=== PATIENT | female | born 1980 | race Caucasian/White ===

== ENCOUNTER 2021-07-16 00:11 | Inpatient (IN) | payer MEDICAID, SELFPAY ==
[2021-07-16] VITALS (11 sets, daily range): BP systolic 109–125; BP diastolic 54–84
[~2021-07-16] VITALS: Ht 170.2 cm; Wt 86.2 kg
[~2021-07-16 00:11] MED LIST: AMOX-1000 PO; FERR325E14 PO; GLIP10TE PO; INSU100S22 SUBQ
--- NOTE | 2021-07-16 00:11 | NUR ---
PATIENT PRESENTS TO ED WITH HIGH BLOOD SUGAR. PT STATES "I DONT WANT TO BE HERE. I WANT TO GO TO [place]." DENIES N/V/D; SKIN IS NORMAL FOR ETHNICITY/WARM/DRY; AAOX4 WITH EVEN AND STEADY GAIT; LUNGS CBTA; HR EVEN AND REGULAR; PT DENIES ANY FEVER, CP, SOB, OR COUGH AT THIS TIME; PATIENT STATES PAIN OF 0/10 AT THIS TIME; VS WITHIN DEFINED LIMITS, BLOOD SUGAR 538; REFUSING PICC AND IVs AT THIS TIME. PATIENT POSITIONED FOR COMFORT; HOB ELEVATED; BEDRAILS UP X2; BED IN LOW POSITION. ER MD AWARE OF PT STATUS. SENT TO BATHROOM FOR URINE. GAIT STEADY EVEN THOUGH PT INDICATES SHE IS "PARTIALLY PARALYZED"
[2021-07-16] MEDS ORDERED: INSULIN REGULAR, HUMAN 100 UNIT/ML VIAL SUBQ ONE ×2 (00:15→01:45)
[2021-07-16 00:37] LABS: HEMATOCRIT 30.5 % (36-48); HEMOGLOBIN 9.6 g/dL (12.0-16.0); MEAN CORPUSCULAR HEMOGLOBIN 21 pg (27-31); MEAN CORPUSCULAR HGB CONC 32 g/dL (33-37); MEAN CORPUSCULAR VOLUME 67.2 fL (80-94); PLATELET COUNT (AUTO) 284 K/uL (140-450); RED BLOOD CELL COUNT(AUTO) 4.53 MIL/uL (4.20-5.40); WHITE BLOOD COUNT (AUTO) 6.6 K/uL (4.8-10.8)
[2021-07-16 00:57] LABS: ALBUMIN 3.1 g/dL (3.4-5.0); ANION GAP 17.1 (8-16); ASPARTATE AMINOTRANSFERASE 11 U/L (15-37); CARBON DIOXIDE 24.5 mmol/L (21-32); CHLORIDE 98 mmol/L (98-107); GFR ARICAN-AMERICAN 79 mL/min (>90); POTASSIUM 3.6 mmol/L (3.5-5.1); SODIUM SERUM 136 mmol/L (136-145); TOTAL BILIRUBIN 0.8 mg/dL (0.0-1.0); UREA NITROGEN, BLOOD 4 mg/dL (7-18)
[2021-07-16 01:00] LABS: EOSINOPHILS % (MANUAL) 2 % (0-4); LYMPHOCYTES % (MANUAL) 24 % (20-46); MONOCYTES % (MANUAL) 11 % (5-12)
[2021-07-16 01:09] LABS: GLUCOSE 582 mg/dL (74-106)
[2021-07-16 01:10] LABS: ACETONE, SERUM SMALL (NEGATIVE)
--- NOTE | 2021-07-16 01:14 | NUR ---
REC'D CALL FROM LAB RE BLOO [id number] AND SMALL ACETONE. SAMANTHA AWARE OF RESULTS. WILL CONTINUE TO TREAT BLOOD GLUCOSE WITH SQ INSULIN. Addendum: 07/16/21 at 0116 by [id number] REC'D CALL FROM LAB RE BLOOD [id number] AND SMALL ACETONE. SAMANTHA AWARE OF RESULTS. WILL CONTINUE TO TREAT BLOOD GLUCOSE WITH SQ INSULIN.
--- NOTE | 2021-07-16 02:00 | NUR ---
BLOOD GLUCOSE 451 ERMD AWARE INSULIN 10 UNITS ORDERED AND GIVEN THEODORE.
--- NOTE | 2021-07-16 02:13 | NUR ---
PT AMB WITH STEADY TO BATHROOM
--- NOTE | 2021-07-16 03:00 | NUR ---
BLOOD GLUCOSE 157 ERMD AWARE. ERMD UNSURE IF PT IS CAPABLE TO BE D/C D/T INABILITY TO PROVIDE ADAQUATE ANSWERS RE ADDRESS, PHONE, PAST MEDICAL HX. ANSWERS CONSISTENTLY CHANGE DURING TIME IN ER. PT APPEARS CONFUSED BUT NOT SIGNIFICANTLY SO. POSSIBLY REQUIRING CUSTOMS IMPORT SPECIALIST INTERVENTION IN THE MORNING. PT INDICATES SHE WANTS A "PLACE"
--- NOTE | 2021-07-16 04:53 | NUR ---
PT TO BE ADMITTED FOR GRAVELY DISABLED AND BLOOD GLUCOSE OUT OF CONTROL.
[2021-07-16] MEDS ORDERED: INSULIN LISPRO SLIDING SCALE 100 UNITS/ML VIAL SUBQ PRN (04:55)
--- NOTE | 2021-07-16 05:30 | NUR ---
OBTAINED SANTOS FOR ADMISSION. WALKED TO LAB AND SIGNED INTO BOOK. GIVEN TO BIG 6 DEALER.
[2021-07-16] MEDS: NACL 0.9% 1,000 ML IV SCH ×4 (06:00→23:46)
--- NOTE | 2021-07-16 06:26 | NUR ---
IV STARTED TO ADMIN IVF ORDERED BY ADMITTING MD #[id number] TO RIGHT HAND. 1 ATTEMPT IMMANUEL WELL SECURED WITH TEGADERM SITE CLEANED WITH ALCOHOL. IVF UP PER ORDERS.
[2021-07-16 06:38] LABS: APPEARANCE,URINE CLEAR (CLEAR); BILIRUBIN,URINE NEGATIVE (NEGATIVE); BLOOD, URINE NEGATIVE (NEGATIVE); COLOR,URINE YELLOW (YELLOW); LEUKOCYTE ESTERASE ,URINE NEGATIVE (NEGATIVE); NITRITE, URINE NEGATIVE (NEGATIVE); UGLUCOSE 3+ (NEGATIVE)
--- NOTE | 2021-07-16 06:58 | NUR ---
Patient appears to be resting comfortably in bed. VS WITHIN DEFINED LIMITS. Respirations even and unlabored. IV INFUSING SITE CLEAR DRY INTACT, NO WARMTH, REDNESS NOTED. DENIES PAIN. NAD NOTED. PENDING ADMIT BED.
[2021-07-16 06:59] LABS: RBC,URINE 0-5 /HPF (0-5); WBC,URINE 0-5 /HPF (0-5); YEAST,URINE Few /HPF (None Seen)
--- NOTE | 2021-07-16 07:10 | NUR ---
REPORT TO ONCOMING NURSE
--- NOTE | 2021-07-16 07:15 | NUR ---
REPORT RECIAVED RICHAR ROSAS FOR TRANSFER OF CARE.
--- NOTE | 2021-07-16 07:48 | NUR ---
BLOOD SUGAR AT 147. Addendum: 07/16/21 at 0751 by [email or web address] NO INSULIN COVERAGE NEEDED PER SLIDING SCALE.
--- NOTE | 2021-07-16 07:57 | NUR ---
Patient will be admitted to care of BRIAN. Admited to MED SURGE. Will go to [id number]. Belongings list completed. Report to GEGE ROSAS.
--- NOTE | 2021-07-16 08:04 | NUR ---
RECEIVED PHONE REPORT FROM ER NURSE FOR CONTINUITY OF CARE. WAITING PATIENT TO TRANSFER TO UNIT.
--- NOTE | 2021-07-16 10:10 | NUR ---
ENDORSED PT TO NACHO FOR CONTINUITY OF CARE. PATIENT IS STABLE.
--- NOTE | 2021-07-16 10:11 | NUR ---
RECEIVED REPORT FROM GEGE ROSAS
[2021-07-16] MEDS ORDERED: BLOOD GLUCOSE MONITORING 1 DEV DEV FS SCH (11:30)
--- NOTE | 2021-07-16 12:00 | NUR ---
UPDATE GIVEN TO FAMILY
[2021-07-16] MEDS: BLOOD GLUCOSE MONITORING 1 DEV DEV FS SCH ×7 (12:30→22:20)
[2021-07-16] MEDS ORDERED: MAG SULF 2000 MG/WATER PREMIX 50 ML IV PRN (12:30)
--- NOTE | 2021-07-16 12:30 | NUR ---
DR TORRES ORDERED TO TRANSFER TO ICU AND TO START DKA PROTOCOL/ INSULIN DRIP
[2021-07-16] MEDS ORDERED: ZOLPIDEM 5 MG TAB PO PRN (12:35)
[2021-07-16] MEDS ORDERED: ACETAMINOPHEN 325 MG TAB PO PRN (12:35)
[2021-07-16] MEDS ORDERED: ONDANSETRON 4 MG/2 ML VIAL IM/IVP PRN (12:35)
[2021-07-16] MEDS ORDERED: HYDROcodone/APAP 5/325 MG 1 TAB TAB PO PRN (12:35)
[2021-07-16] MEDS ORDERED: DOCUSATE SODIUM 100 MG GELCAP PO PRN (12:35)
[2021-07-16] MEDS ORDERED: LORazepam 2 MG/ML VIAL IM/IVP PRN (12:35)
[2021-07-16] MEDS ORDERED: MORPHINE SULFATE 2 MG/ML SYR IVP PRN (12:35)
[2021-07-16] MEDS ORDERED: FLUCONAZOLE 200 MG/NS PREMIX 100 ML IV SCH (13:00)
[2021-07-16] MEDS ORDERED: INSULIN REGULAR, HUMAN 100 UNIT in NACL 0.9% 100 ML IV SCH ×2 (13:00)
--- NOTE | 2021-07-16 13:30 | NUR ---
NOTIFIED DR TORRES ABOUT LATEST ANION GAP 13.3, ORDERED TO STOP INSULIN DRIP, CONTINUE IV NS 200CC/HR, AND MONITOR BLOOD SUGAR Q2H, KEEP ICU STATUS
[2021-07-16 13:33] LABS: ANION GAP 13.3 (8-16); CARBON DIOXIDE 27.8 mmol/L (21-32); CREATININE 0.7 mg/dL (0.6-1.3); POTASSIUM 3.1 mmol/L (3.5-5.1)
[2021-07-16 13:48] LABS: THYROID STIMULATING HORMONE 1.64 uIU/mL (0.34-3.74)
[2021-07-16 14:39] LABS: BARBITURATE, URINE NEGATIVE ng/ml (NEG <=200); BENZODIAZEPINE, URINE NEGATIVE ng/mL (NEG <=200); CANNABINOID, URINE NEGATIVE ng/mL (NEG <=50); COCAINE, URINE NEGATIVE ng/mL (NEG <=300); OPIATE, URINE NEGATIVE ng/mL (NEG <=2000); PHENCYCLIDINE SCREEN,URINE NEGATIVE ng/mL (NEG <=25)
--- NOTE | 2021-07-16 16:00 | NUR ---
K 3.1, PT REFUSED K-DUR 40MEQ, OFFERED TO CHANGED ROUTE TO IV K RIDER BUT STILL REFUSED. PT SAID THAT SHE WILL TAKE K-DUR WHEN SHE IS ABLE TO EAT
--- NOTE | 2021-07-16 17:36 | NUR ---
PT REFUSING BLOOD DRAW AT THIS TIME, EXPLAINED TO PT NEED FOR LABS, PT SAID TO COME BACK AT 1800
[2021-07-16] MEDS: POTASSIUM CHLORIDE 10 MEQ TABER PO PRN (17:45)
--- NOTE | 2021-07-16 19:30 | NUR ---
RECEIVED REPORT FROM RALPH GRIFFITH DAYSHIFT NURSE AT BEDSIDE PT SITTING UP IN BED HOB AT 90% SHE IS AOX4 ON ROOM AIR SHE HAS A 22G ON RIGHT HAND INTACT AND RUNNING NORMAL SALINE AT 200MLS/HR. PT V/S FOLLOWS: T 98.2 P 86 R 21 B/P 116/68 02 100% ON ROOM AIR. PT RESTING WITH EYES CLOSED AND SHE HAS NO C/O VOICED AT THIS TIME. ALL UNIVERSAL FALLS PRECAUTIONS IN PLACE.
--- NOTE | 2021-07-16 20:05 | NUR ---
PT FINGERSTICK IS 227, NO S/S ORDERED AT THIS TIME. LAB AT BEDSIDE ATTEMPTING TO DRAW BLOOD. CONSTRUCTION EQUIPMENT OVERHAULER HAD 2 UNSUCCESSFUL POKES, PT REQUESTED ANOTHER HEALTH PLAN ADVISOR TO ATTEMPT BLOOD DRAW. PT SAID SHE WOULD TAKE ORDERED HEPARIN SHOT WITH MUCH ENCOURAGEMENT AND EDUCATION REGARDING PROPOSE OF MEDICATION. ALL FALLS PRECAUTIONS IN PLACE.
--- NOTE | 2021-07-16 20:30 | NUR ---
PT REQUESTED BED SERRA AND WAS ASSISTED REQUESTED. V/S FOLLOWS: P 90 R 20 B/P 125/73 02 100% ON ROOM AIR. AWAITING ANOTHER ELECTRICIAN MANAGER FROM LAB TO ATTEMPT BLOOD DRAW. PT WAS ASKED AGAIN IF SHE WOULD BE WILLING TO TAKE THE ORDERED K-DUR OR K-RIDER VIA IV. PT SAID SHE WOULD TAKE THE K-DUR WHEN SHE CAN EAT AND SHE WAS CONCERNED THAT THE K-RIDER MAY BURN WITH ADMINISTRATION AND THAT SHE DID NOT WANT TO RECEIVE THE K-RIDER SHE WILL SAID THAT SHE WILL WAIT FOR TOMORROW WHEN SHE IS ORDERED A DIET AND WILL TAKE THE K-DUR WITH FOOD.
--- NOTE | 2021-07-16 21:03 | NUR ---
LAB AT BEDSIDE ATTEMPTING TO GET BLOOD DRAW. ENCOURAGE PT NOT TO LOOK AT BLOOD DRAW, WHICH MAY HELP THE TECHNICIANS TO COLLECT HER BLOOD. PT REFUSED AND WAS RUDE TO STAFF SAYING SAID THAT SHE NEEDS TO LOOK THAT SHE NEEDS TO LOOK AT NEEDLE AND DONT ASK ME AGAIN. STAFF REPLIED THAT THEY ARE ONLY TRYING TO HELP MAKE IT EASIER TO PERHAPS COLLECT THE BLOOD , BUT IT IS UP TO HER IF SHE PREFERS TO BE POKED SEVERAL TIMES INSTEAD OF LISTENING TO ADVISE OF STAFF.
--- NOTE | 2021-07-16 22:15 | NUR ---
PT SITTING UP IN BED RESTING WITH EYES CLOSED FINGERSTICK IS 248 V/S FOLLOWS: P 86 R 14 B/P 121/69 02 100%. LAB UNABLE TO OBTAIN BLOOD DRAW. NO C/O VOICED AT THIS TIME.
[2021-07-16 23:43] LABS: ANION GAP 16.5 (8-16); CARBON DIOXIDE 22.9 mmol/L (21-32); CREATININE 0.6 mg/dL (0.6-1.3); POTASSIUM 3.4 mmol/L (3.5-5.1)
[2021-07-16 23:46] LABS: MAGNESIUM 1.8 mg/dL (1.8-2.4)
[2021-07-17] VITALS (14 sets, daily range): BP systolic 94–148; BP diastolic 58–92
--- NOTE | 2021-07-17 00:30 | NUR ---
PT FINGERSTICK IS 241 NO COVERAGE ORDERED. LAB CALLED, MRSA SWAB NEEDED. PT PLACED ON BED SERRA REQUESTED. V/S FOLLOWS: T 97.9 P 91 R 18 B/P 132/77 02 99% ON ROOM AIR. ALL UNIVERSAL FALLS PRECAUTIONS IN PLACE. NORMAL SALINE CONTINUES AT 200MLS AN HOUR IV SITE IS ASYMPTOMATIC. PT DENIES ANY PAIN.
[2021-07-17] MEDS: BLOOD GLUCOSE MONITORING 1 DEV DEV FS SCH ×7 (00:57→21:44)
--- NOTE | 2021-07-17 02:30 | NUR ---
PT GIVEN REQUESTED BED SERRA, HE FINGERSTICK IS 274. PT DECLINED LAB DRAWS OF BMP, MAG PHOSPHOROUS DUE AT THIS TIME. LAB WILL ENDORSE TO NEXT SHIFT TO DRAW PT AT BEDSIDE.
--- NOTE | 2021-07-17 04:30 | NUR ---
PT GIVEN REQUESTED BED SERRA, FINGERSTICK IS 280. NS RUNNING AT 200MLS/HR.
--- NOTE | 2021-07-17 05:32 | NUR ---
PT HAD URINATED THE BED, SHE WAS GIVEN A BED BATH, LINENS AND GOWN WAS CHANGED. SHE REMAINS ON ROOM AIR IV SITE INTACT AND FLUSHED PATENT. NEW BAG OF NORMAL SALINE HUNG AND CONTINUES RUNNING AT 200MLS/HR. V/S FOLLOWS: P 81 R 18 B/P 128/71 02 100% ON ROOM AIR. ALL ORDERED PRECAUTIONS IN PLACE.
--- NOTE | 2021-07-17 06:20 | NUR ---
PT FINGERSTICK IS 275, V/S FOLLOWS: P 75 R 15 B/P 135/75 02 98% ON ROOM AIR. NORMAL SALINE RUNNING ORDERED. ALL REQUESTS ATTENDED BY STAFF AND ALL UNIVERSAL PRECAUTIONS IN PLACE.
--- NOTE | 2021-07-17 07:05 | NUR ---
RECEIVED REPORT FROM RALPH KUNZ, PT IS SLEEPING, ON ROOM AIR, BEDREST AND NPO EXCEPT MEDICATIONS. LATEST BLOOD SUGAR AT 275 MG/D, SKIN INTACT, IV INTACT ON RIGHT HAND G22 RUNNING NS AT 200 MLS/HR, PT REFUSED K RIDER AND LAB DRAWS, PT FOR HEAD CT WITH OUT CONTRAST AND FOR SNF PLACEMENT FOR POSSIBLE PT NEEDS. SAFETY MEASURES IN PLACE AND CALL LIGHT WITHIN REACH. WILL CONTINUE TO MONITOR.
[2021-07-17] MEDS ORDERED: DEXTROSE 50% 50 ML SYR IVP PRN (08:25)
--- NOTE | 2021-07-17 08:30 | NUR ---
PT OUT IN HER ROOM HEAD CT WITHOUT CONTRAST DONE PT TOLERATED WELL AND PT STABLE.
[2021-07-17] MEDS: FERROUS SULFATE 325 MG TABEC PO SCH (08:43)
--- NOTE | 2021-07-17 09:00 | NUR ---
PT REFUSED PO MEDICATIONS AND HEPARIN SODIUM SUBQ. AND PT REFUSED LAB DRAWS.
--- NOTE | 2021-07-17 09:14 | NUR ---
PATIENT HAS BEEN SCREENED AND CATEGORIZED HIGH NUTRITION RISK. PATIENT WILL BE SEEN WITHIN 1-2 DAYS OF ADMISSION. 07/16/21-07/17/21 REVIEWED BY AD KIM RD
[2021-07-17] MEDS: INSULIN LISPRO SLIDING SCALE 100 UNITS/ML VIAL SUBQ PRN ×3 (11:55→21:48)
[2021-07-17 14:26] LABS: BASOPHILS # (AUTO) 0.1 K/uL (0.00-0.22); BASOPHILS % (AUTO) 1.1 % (0.0-2.0); EOSINOPHILS # (AUTO) 0.1 K/uL (0-0.4); EOSINOPHILS % (AUTO) 2.1 % (0.0-4.0); HEMATOCRIT 31.4 % (36-48); HEMOGLOBIN 10.1 g/dL (12.0-16.0); LYMPHOCYTES # (AUTO) 1.4 K/uL (2.5-16.5); LYMPHOCYTES % (AUTO) 27.4 % (20.5-51.1); MEAN CORPUSCULAR HEMOGLOBIN 21 pg (27-31); MEAN CORPUSCULAR HGB CONC 32 g/dL (33-37); MEAN CORPUSCULAR VOLUME 66.2 fL (80-94); MONOCYTES # (AUTO) 0.4 K/uL (0.8-1.0); MONOCYTES % (AUTO) 7.2 % (1.7-9.3); NEUTROPHILS # (AUTO) 3.1 K/uL (1.8-7.7); NEUTROPHILS % (AUTO) 62.2 % (42.2-75.2); PLATELET COUNT (AUTO) 257 K/uL (140-450); RED BLOOD CELL COUNT(AUTO) 4.75 MIL/uL (4.20-5.40); RED CELL DISTRIBUTION WIDTH 24.7 % (11.6-13.7)
[2021-07-17 14:36] LABS: ANION GAP 12.4 (8-16); CARBON DIOXIDE 27.6 mmol/L (21-32); CREATININE 0.6 mg/dL (0.6-1.3)
[2021-07-17 14:39] LABS: MAGNESIUM 1.7 mg/dL (1.8-2.4); PHOSPHORUS 2.1 mg/dL (2.5-4.9)
--- NOTE | 2021-07-17 15:34 | NUR ---
07/17/21 RD INITIAL ASSESSMENT COMPLETED PLEASE REFER TO NUTRITION ASSESSMENT UNDER CARE ACTIVITY FOR ESTIMATED NUTRITIONAL NEEDS. 1. CONTINUE [facility] 60 GMS DIET ONCE LAB VALUES ARE OBTAINED AND STABLE 2. MONITOR BLOOD GLUCOSE LEVELS 3. RD TO FOLLOW-UP 2-3 DAYS, HIGH RISK ANY PETTY RD
--- NOTE | 2021-07-17 16:30 | NUR ---
GAVE REPORT TO ESTHER FOR CONTINUITY OF CARE.PT IS STABLE AND NI DISTRESS NOTED.
--- NOTE | 2021-07-17 16:31 | NUR ---
RECEIVED REPORT FROM DAY NURSE FOR CONTINUITY OF CARE. PATIENT IS AWAKE, NO DISTRESS NOTED. BREATHING IS EVEN AND UNLABORED. DENIES PAIN. NO IV LINE IN PLACE. ON TELE. RESTING IN BED. CALL LIGHT WITHIN REACH. PT IS STABLE.
--- NOTE | 2021-07-17 19:30 | NUR ---
REPORT GIVEN TO THE NIGHT NURSE FOR CONTINUITY OF CARE.
[2021-07-18] VITALS: BP 134/63
[2021-07-18 04:00] VITALS: BP 122/67
[2021-07-18] MEDS: BLOOD GLUCOSE MONITORING 1 DEV DEV FS SCH ×4 (07:01→21:00)
[2021-07-18] MEDS: INSULIN LISPRO SLIDING SCALE 100 UNITS/ML VIAL SUBQ PRN ×4 (07:03→21:30)
--- NOTE | 2021-07-18 07:31 | NUR ---
ENDORSED TO DAY NURSE, RALPH HERNANDEZ FOR CONTINUITY OF CARE. ANNETTE AYALA RN
[2021-07-18 08:00] VITALS: BP 116/68
--- NOTE | 2021-07-18 08:02 | NUR ---
RECEIVED REPORT FROM CARTON AND CAN SUPPLY SUPERVISOR NURSE FOR CONTINUITY OF CARE. PATIENT IS AWAKE, NO DISTRESS NOTED. BREATHING IS EVEN AND UNLABORED. DENIES PAIN. PATIENT HAS NO IV LINE, REFUSED TO INSERT NEW ONE . ON TELE. RESTING IN BED. CALL LIGHT WITHIN REACH. ALL SAFETY MEASURES ON PLACE
[2021-07-18] MEDS: FERROUS SULFATE 325 MG TABEC PO SCH (08:37)
[2021-07-18 09:04] LABS: BASOPHILS # (AUTO) 0.1 K/uL (0.00-0.22); BASOPHILS % (AUTO) 1.3 % (0.0-2.0); EOSINOPHILS # (AUTO) 0.1 K/uL (0-0.4); EOSINOPHILS % (AUTO) 2.5 % (0.0-4.0); HEMATOCRIT 27.5 % (36-48); HEMOGLOBIN 8.8 g/dL (12.0-16.0); LYMPHOCYTES # (AUTO) 1.4 K/uL (2.5-16.5); LYMPHOCYTES % (AUTO) 26.5 % (20.5-51.1); MEAN CORPUSCULAR HEMOGLOBIN 21 pg (27-31); MEAN CORPUSCULAR HGB CONC 32 g/dL (33-37); MEAN CORPUSCULAR VOLUME 66.5 fL (80-94); MONOCYTES # (AUTO) 0.5 K/uL (0.8-1.0); MONOCYTES % (AUTO) 10.2 % (1.7-9.3); NEUTROPHILS % (AUTO) 59.5 % (42.2-75.2); PLATELET COUNT (AUTO) 234 K/uL (140-450); RED BLOOD CELL COUNT(AUTO) 4.14 MIL/uL (4.20-5.40); RED CELL DISTRIBUTION WIDTH 24.3 % (11.6-13.7); WHITE BLOOD COUNT (AUTO) 5.1 K/uL (4.8-10.8)
[2021-07-18 09:06] LABS: T4 (THYROXINE) 7.3 ug/dL (4.5-12.0)
[2021-07-18 09:14] LABS: ANION GAP 11.2 (8-16); CARBON DIOXIDE 27.9 mmol/L (21-32); CREATININE 0.8 mg/dL (0.6-1.3); POTASSIUM 3.1 mmol/L (3.5-5.1)
[2021-07-18 09:33] LABS: MAGNESIUM 1.8 mg/dL (1.8-2.4); PHOSPHORUS 2.3 mg/dL (2.5-4.9)
--- NOTE | 2021-07-18 10:00 | NUR ---
PATIENT IN BED NO COMPLAINS, NO SOD NOTED, PATIENT GOT MORNING MEDICATION AND EDUCATION REGARD MEDS POC DISCUSSED CALLS LIGHT WITHIN REACH ALL SAFETY MEASURES ON PLACE
--- NOTE | 2021-07-18 11:42 | NUR ---
PATIENT IN BED NO COMPLAINS, NO SOD NOTED CALLS LIGHT WITHIN REACH ALL SAFETY MEASURES ON PLACE
[2021-07-18] MEDS: POTASSIUM CHLORIDE 10 MEQ TABER PO PRN (11:57)
[2021-07-18 12:28] VITALS: BP 116/67
--- NOTE | 2021-07-18 13:50 | NUR ---
PATIENT IN BED NO COMPLAINS, NO SOD NOTED, ALL SAFETY MEASURES ON PLACE, CALLS LIGHT WITHIN REACH
[2021-07-18 15:07] LABS: FOLIC ACID 10.4 ng/mL (>3.0)
--- NOTE | 2021-07-18 16:02 | NUR ---
PATIENT IN BED NO COMPLAINS, NO SOD NOTED, PSYCHIATRIC TRIED TO TALK TO THE PATIENT . PATIENT REFUSED TO TALKED TO THE PSYCHIATRIC DR ALL SAFETY MEASURES ON PLACE, CALLS LIGHT WITHIN REACH
[2021-07-18 16:20] VITALS: BP 122/70
--- NOTE | 2021-07-18 16:32 | NUR ---
DC PLANNING: JUAREZ SPOKE WITH THE PATIENT REGARDING THE NEED FOR PSYCH EVALUATION PT STATED SHE DIDN'T KNOW THAT SHE NEEDED EVALUATION FOR PLACEMENT HOWEVER AGREE AND WILL COOPERATE. SW TO CONTACT ANGELO CHAVEZ INFUSION THERAPY NURSE. ONCE SHE HAS PSYCH EVAL AND NURSE'S NOTES TO BE FAXED TO [facility] IN [place] PHONE # [phone] FAX NUMBER [phone]. CM TO FOLLOW Addendum: 07/19/21 at 0914 by Janay Cancino CM DC PLANNING: ORDERS RECEIVED FOR IP PSYCHIATRIC PLACEMENT. JUAREZ SPOKE WITH [facility], THEY HAVE NOT YET RECEIVED INFORMATION ON THE PATIENT FOR PLACEMENT, CM WILL FOLLOW UP.
--- NOTE | 2021-07-18 16:49 | NUR ---
PATIENT IN BED NO COMPLAINS, NO SOD NOTED, SOUP MIXER TALKED TO THE PATIENT REGARD THE PSYICH TISH, PATIENT AGREE. PSYCHIATRICS EVAL WILL BE DONE AGAIN TODAY AT 7ALL SAFETY MEASURES ON PLACE, CALLS LIGHT WITHIN REACH
--- NOTE | 2021-07-18 18:15 | NUR ---
PATIENT IN BED NO COMPLAINS, NO SOD NOTED, ALL SAFETY MEASURES ON PLACE, CALLS LIGHT WITHIN REACH
--- NOTE | 2021-07-18 19:56 | NUR ---
full bedside report given to weight shifter nurse
[2021-07-18 20:00] VITALS: BP 117/57
--- NOTE | 2021-07-18 21:13 | NUR ---
PSYCH CONSULT DONE.PER PSYCHIATRIST PT NEEDS TO TRANSFER TO PSYCH FACILITY.
[2021-07-19] VITALS: BP 109/59
--- NOTE | 2021-07-19 00:58 | NUR ---
PATIENT ALERT RESTING IN BED NO C/O OF PAIN ON MONITOR SINUS PATIENT LUNGS DIMINISH TO LISTEN .PATIENT REFUSE HER HEPARIN S.Q BLOOD SUGAR HS WAS 382 COVERED WITH 10 UNITS OF HUMALOG S.Q PATIENT REFUSE TO HAVE A IV STARTED. SKIN INTACT MIKE FOR HER TO GO TO [facility].
[2021-07-19 04:00] VITALS: BP 110/62
--- NOTE | 2021-07-19 07:15 | NUR ---
RECEIVED BEDSIDE REPORT FROM KERFER MACHINE OPERATOR NURSE FOR CONTINUITY OF CARE. PT IS ASLEEP. CHEST RISE AND FALL IS SYMMETRICAL. ON RA WITH BREATHING UNLABORED. SR ON TELE MONITOR. AMBULATORY INDEPENDENTLY. SKIN IS WARM, DRY, AND INTACT. IV IS INTACT. PT REFUSED BS READING PER KERFER MACHINE OPERATOR NURSE, WILL TRY AGAIN SHORTLY. PT IS STABLE. PLAN OF CARE DISCUSSED.
[2021-07-19 08:00] VITALS: BP 122/69
--- NOTE | 2021-07-19 08:00 | NUR ---
NO IV ACCESS. ATTEMPTED TO INSERT IV AND PT REFUSED. NO IV LINE IN PLACE, WILL TRY AGAIN LATER.
--- NOTE | 2021-07-19 08:24 | NUR ---
PT REFUSED AM LAB DRAW. TECH WILL COME BACK AFTER BREAKFAST.
[2021-07-19] MEDS: FERROUS SULFATE 325 MG TABEC PO SCH (09:00)
[2021-07-19] MEDS: ARIPiprazole 10 MG TAB PO SCH (09:00)
--- NOTE | 2021-07-19 09:00 | NUR ---
PT REFUSED TO TAKE ABILIFY, HEPARIN, AND FERROUS SULFATE. MEDICATION EDUCATION WAS PROVIDED AND PT STILL REFUSED. PT STATED SHE DOESN'T WANT PSYCHIATRIC MEDICINE, SHES NOT ANEMIC, AND SHE DOES NOT WANT TO TAKE A BLOOD THINNER. WILL INFORM MD ON CASE.
[2021-07-19] MEDS: FLUCONAZOLE 100 MG TAB PO SCH (09:20)
[2021-07-19] MEDS: BLOOD GLUCOSE MONITORING 1 DEV DEV FS SCH ×4 (09:22→20:50)
[2021-07-19] MEDS: INSULIN LISPRO SLIDING SCALE 100 UNITS/ML VIAL SUBQ PRN ×4 (09:28→20:53)
--- NOTE | 2021-07-19 09:28 | NUR ---
BS READING IS 366. HUMALOG INSULIN 10 UNITS WAS ADMINISTERED ORDERED PER SLIDING SCALE. MEDICATION EDUCATION WAS PROVIDED AND PT VERBALIZED UNDERSTANDING.
--- NOTE | 2021-07-19 11:00 | NUR ---
PT WAS GIVEN WATER REQUESTED. PT IS AWAKE AND ALERT, ABLE TO MAKE NEEDS KNOWN. PT IS AGGRESSIVE AND SHOWS AGITATION TOWARDS STAFF. NO DISTRESS NOTED. PT IS STABLE.
--- NOTE | 2021-07-19 12:07 | NUR ---
PT'S BS READING WAS 310. PT WAS GIVEN HUMALOG INSULIN, 8 UNITS, PER SLIDING SCALE. PT VERBALIZED UNDERSTANDING ON MEDICATION EDUCATION.
--- NOTE | 2021-07-19 12:43 | NUR ---
CALLED [facility] , THEY WILL SEND SOMEONE FOR 5150 HOLD.
--- NOTE | 2021-07-19 13:17 | NUR ---
OFFICEIza DANG AT BEDSIDE AND EVALUATED PT. STATED BY OFFICER "PT DID NOT MEET CRITER[facility] FOR 5150 HOLD." NOTIFIED TARYN, JOURNEYMAN PIPE FITTER, AND SHE STATED SHE WOULD LET [facility]ICK[facility] KNOW WHO IS ON THE CASE. WILL WAIT FOR RESPONSE FROM VICKY ON THE PLAN OF CARE.
--- NOTE | 2021-07-19 13:55 | NUR ---
07/19/21 RD FOLLOW UP COMPLETED PLEASE REFER TO NUTRITION ASSESSMENT UNDER CARE ACTIVITY FOR ESTIMATED NUTRITIONAL NEEDS. 1. CONTINUE [facility] 60 GM DIET TOLERATED 2. MONITOR BLOOD GLUCOSE LEVELS 3. RD TO FOLLOW-UP 2-3 DAYS, HIGH RISK ANY PETTY RD
--- NOTE | 2021-07-19 14:15 | NUR ---
DC PLANNING: DARRIN SPOKE WITH MIGUEL AT PSYCH GROUP COORDINATOR OF SERVICES TO INFORM HER ABOUT [facility] P.DKandi DID NOT PLACE PATIENT ON A 5150 HOLD DUE TO NOT MEETING CRITERIA FOR GRAVELY DISABILITY TO BE TRANSFER TO A PSYCH FACILITY. PER MIGUEL SHE WILL INFORM DR. PERERA TO DETERMINE IF SHE NEEDS TO DO ANOTHER EVALUATION OR DOCUMENT A PSYCH CLEARANCE FOR PATIENT. PER MIGUEL SHE WILL FOLLOW UP WITH A CALL TO THESE TAG MAKER LATER TODAY.
--- NOTE | 2021-07-19 14:56 | NUR ---
DC PLANNING: SW SPOKE TO [facility] AT AND DISCUSS PATIENT'S SITUATION WITH PLACEMENT AND SHE REQUESTED TO HAVE RECENT NURSE'S NOTES AND EVALUATIONS ON PATIENT BE FAXED TO [facility] AT . SW AGREED AND WILL FOLLOW UP NEEDED.
--- NOTE | 2021-07-19 15:35 | NUR ---
RECEIVED CALL FROM VICKY, AIRCRAFT MECHANIC. SHE STATED THAT DR. Fregoso NEEDS A FOLLOW UP WITH THE PT IN THE NEXT TEN MINUTES. WILL CONNECT IPAD AND WAIT FOR CALL.
--- NOTE | 2021-07-19 15:56 | NUR ---
SPOKE TO PSYCH DOCTOR, DR. Gaffney ON THE TELE PSYCH IPAD VIA VIDEO CALL. ALL QUESTIONS ANSWERED ABOUT PT. PT SPOKE WITH PSYCH DOCTOR. PT ANSWERED ALL QUESTIONS. NO SUICIDAL IDEATION NOTED. DOCTOR STATED THAT SHE WOULD BE CLEARED FROM A HOLD AND CASE MANAGEMENT CAN ARRANGE FOR PLACEMENT TO A FACILITY.
[2021-07-19 16:00] VITALS: BP 109/56
--- NOTE | 2021-07-19 16:48 | NUR ---
PT'S BS READING IS 200. PT WAS GIVEN 2 UNITS PER SLIDING SCALE HUMALOG INSULIN.
--- NOTE | 2021-07-19 17:17 | NUR ---
DC PLANNING LATE ENTRY DARRIN FAXED PATIENT'S INFORMATION, CLINICALS AND MUST RECENT NOTES AND EVALUATION TO MANSI FROM [facility]. WITH COMPLETION CONFIRMATION AT ABOUT 15:30 VENA FROM [facility] CONTACTED DARRIN STATING THAT SHE HAS RECEIVED PATIENT'S CLINICAL AND INFORMATION FAXED TO HER AND WILL BE REVIEWING PATIENT'S INFORMATION TODAY AND WILL CALL BACK TOMORROW WITH RESPONSE AND FEEDBACK ABOUT PLACEMENT. DARRIN THANKED HER FOR INFORMATION AGREED AND WILL FOLLOW UP NEEDED. Addendum: 07/20/21 at 1234 by Ana Morrow CM VENA FROM [facility] CONTACTED DARRIN STATING THAT FACILITY HAS REVIEWED PATIENT'S INFORMATION AND CLINICALS AND THEY ARE NOT ACCEPTING CLIENT AT THIS TIME DUE TO SOME OF HER BEHAVIORS AND CONSTANT LACK OF COMPLIANCE. DARRIN THANKED HER FOR THE UPDATED INFORMATION AND ENDED THE CALL.
--- NOTE | 2021-07-19 17:38 | NUR ---
PT REFUSED LAB DRAW FROM [employer]. THIRD ATTEMPT THAT HAS BEEN DENIED. EDUCATION WAS PROVIDED AND PT VERBALIZED UNDERSTANDING. SHE STILL REFUSED LABS.
--- NOTE | 2021-07-19 19:15 | NUR ---
ENDORSED PT TO DECISION SCIENCE ANALYST NURSE FOR CONTINUITY OF CARE. PT IS STABLE. PLAN OF CARE DISCUSSED.
--- NOTE | 2021-07-19 19:16 | NUR ---
RECD. RESTING IN BED, AWAKE, A/OX4, EATING HER DINNER WHILE WATCHING TV. RESPIRATION EVEN AND UNLABORED. NO IV LINE, PATIENT IS REFUSING TO HAVE NEW IV LINE INSERTED. INDEPENDENT, ABLE TO AMBULATE BY HERSELF. DISCUSSED MEDICATIONS TO BE ADMINISTERED TONIGHT. VERBALIZED SHE DOES NOT LIKE TO BE GIVEN HEPARIN BECAUSE IT MAKES HER UNCOMFORTABLE. EXPLAINED THE IMPORTANCE OF THIS MEDICATION BUT STILL REFUSED STATED "I TOLD THEM ALREADY TO TELL THE DOCTOR TO DISCONTINUE IT BUT STILL EVERY TIME A NEW NURSE COMES STILL THEY LIKE TO GIVE IT TO ME." AGREED WITH BLOOD SUGAR CHECK INSULIN COVERAGE. DENIES PAIN 0/10.
--- NOTE | 2021-07-19 20:53 | NUR ---
BS CHECKED - 328, LISPRO INSULIN COVERAGE GIVEN SUB-Q PER MD ORDER. SNACK GIVEN.
--- NOTE | 2021-07-20 | NUR ---
RESTING IN BED COMFORTABLY, RESPIRATION EVEN AND UNLABORED. REFUSED VITAL SIGNS TO BE TAKEN.
--- NOTE | 2021-07-20 01:38 | NUR ---
Patient's Plan of Care was discussed and reviewed with INDUCTION HEAT TREATER: LINDSAY HE
--- NOTE | 2021-07-20 02:00 | NUR ---
CHECKED PATIENT. SLEEPING ON HER RIGHT SIDE COVERED WITH BLANKETS. FACE CALM, NO APPEARANCE OF PAIN OR DISCOMFORT NOTED, 0/10.
--- NOTE | 2021-07-20 04:00 | NUR ---
AMBULATED TO THE BR TO VOID. BACK TO BED AFTER VOIDING. WENT BACK TO SLEEP.
--- NOTE | 2021-07-20 06:00 | NUR ---
STILL SLEEPING COMFORTABLY IN BED. RESPIRATION EVEN AND UNLABORED. NO COMPLAINT OF PAIN OR DISCOMFORT, 0/10.
[2021-07-20] MEDS: BLOOD GLUCOSE MONITORING 1 DEV DEV FS SCH ×4 (06:21→20:47)
[2021-07-20] MEDS: INSULIN LISPRO SLIDING SCALE 100 UNITS/ML VIAL SUBQ PRN ×4 (06:25→20:52)
--- NOTE | 2021-07-20 07:20 | NUR ---
BS - 322. LISPRO INSULIN SLING SCALE COVERAGE ADMINISTERED PER MD ORDER. PT STILL SLEEPING COMFORTABLY IN BED.
--- NOTE | 2021-07-20 07:25 | NUR ---
CONDITION REMAIN STABLE. ENDORSED TO AM SHIFT NURSE FOR CONTINUITY OF CARE.
--- NOTE | 2021-07-20 07:44 | NUR ---
RECEIVED REPORT FROM BACK FEEDER PLYWOOD LAYUP LINE NURSE FOR CONTINUITY OF CARE. PATIENT IS AWAKE, NO DISTRESS NOTED. BREATHING IS EVEN AND UNLABORED. DENIES PAIN. PATIENT HAS NO IV LINE, REFUSED TO INSERT NEW ONE . ON TELE. RESTING IN BED. CALL LIGHT WITHIN REACH. ALL SAFETY MEASURES ON PLACE Addendum: 07/20/21 at 0745 by Daniel Page RN RN PATIENT IS MED SURG
--- NOTE | 2021-07-20 07:44 | NUR ---
PATIENT IS MED SURG
[2021-07-20 08:00] VITALS: BP 116/62
[2021-07-20] MEDS: FERROUS SULFATE 325 MG TABEC PO SCH (08:52)
[2021-07-20] MEDS: FLUCONAZOLE 100 MG TAB PO SCH (08:52)
[2021-07-20] MEDS: ESCITALOPRAM 20 MG TAB PO SCH (08:52)
[2021-07-20] MEDS: ARIPiprazole 10 MG TAB PO SCH (09:00)
[2021-07-20] MEDS: INSULIN LANTUS 100 UNITS/ML 10 ML VIAL SUBQ SCH (09:09)
--- NOTE | 2021-07-20 09:12 | NUR ---
PATIENT IN BED NO COMPLAINS NO SOD NITED PATIENT EATING BREAKFAST, GOT MORNING MEDICATION ADMINISTRATED, TOLERATED WELL, PATIENT REFUSED BLOOD WORK IN GTHE MORNING AND ASKE THE LAB PERSONNEL TO COME AT 1400. PATIENT ALSO REFUSE HEPARIN, EDUCATION GIVEN BUT STILL REFUSING, AWARE, PATIENT HAS ORDER FOR ABILIFY 2MG, WE HAVE IT IN 10MG, AND CANT CUT IT TO 2MG, INFORMED PHARMACY, PHARMACY WILL TALK NTO THE DOCTOR TO CHANGE THE ORDER
[2021-07-20] MEDS ORDERED: ARIPiprazole 10 MG TAB PO SCH (10:10)
--- NOTE | 2021-07-20 11:25 | NUR ---
PATIENT IN BED NO COMPLAINS NO SOD NOTED CALLS LIGHT WITHIN [place], ALL SAFETY MEASURES ON PLACE
--- NOTE | 2021-07-20 12:57 | NUR ---
DARRIN FAXED PATIENT'S CLINICALS AND INFORMATION AT [facility] AT FOR FACILITY TO REVIEW FOR POSSIBLE PLACEMENT. DARRIN CALL MARCELINA AT ADMISSIONS TO VERIFY IF SHE HAS RECEIVED PATIENT'S INFORMATION FAXED TO HER FOR REVIEW WITH COMPLETED CONFIRMATION AT ABOUT 12:50PM. MODE CONFIRM. Addendum: 07/20/21 at 1330 by Ana Morrwo CM DARRIN FAXED PATIENT'S CLINICALS AND INFORMATION AT [facility] AT FOR FACILITY TO REVIEW FOR POSSIBLE PLACEMENT. DARRIN CALLED SHERRI FROM ADMISSIONS AT TO DISCUSS PATIENT INFORMATION, STATUS AND POSSIBLE PLACEMENT ALSO VERIFY IF PATIENT PACKET WAS RECEIVED, SINCE WAS SEND AT ABOUT 12:46 WITH COMPLETED CONFIRMATION. SHERRI CONFIRMED RECEIVED INFORMATION STATED THAT HE WILL REVIEW IT AND WILL FOLLOW UP. DARRIN THANK HIM AND ENDED THE CALL Addendum: 07/20/21 at 1453 by Ana Morrow CM SHERRI FROM [facility] CALL BACK SW STATING THAT [facility] FACILITY IS NOT ABLE TO ACCEPT PATIENT AT THIS TIME, REPORTED THAT WEAVER OF POINT TO THEIR FACILITY IS ABOUT $1,600.00 PER MONTH. SW THANK HIM FOR HIS INFORMATION, CALL BACK AND ENDED THE CALL.
--- NOTE | 2021-07-20 13:43 | NUR ---
PATIENT IN BED NO COMPLAINS NO SOD NOTED CALLS LIGHT WITHIN [place], ALL SAFETY MEASURES ON PLACE
[2021-07-20] MEDS ORDERED: HUMSLIDE SUBQ (14:09)
[2021-07-20] MEDS ORDERED: ABI10 PO (14:09)
[2021-07-20] MEDS ORDERED: D50SYR IVP (14:09)
[2021-07-20] MEDS ORDERED: GLUC-805 FS (14:09)
[2021-07-20] MEDS ORDERED: ESCI20TA49 PO (14:09)
[2021-07-20] MEDS ORDERED: FERR325E14 PO (14:09)
[2021-07-20 16:26] VITALS: BP 122/74
--- NOTE | 2021-07-20 16:34 | NUR ---
PATIENT IN BED NO COMPLAINS NO SOD NOTD, CALLS LIGHT WITHIN REACH, ALL SAFETY MEASURES ON PLACE
--- NOTE | 2021-07-20 19:21 | NUR ---
full bed side report given to airplane electrician nurse
--- NOTE | 2021-07-20 19:22 | NUR ---
RECEIVED REPORT FROM AM SHIFT NURSE, FOR CONTINUITY OF CARE. A&OX4. NO S/S OF DISTRESS ON RA. BREATHING IS EVEN AND UNLABORED. PT IS AMBULATORY. STATED MILD PAIN ON RIGHT FOOT BUT TOLERABLE. STATED MILD HEADACHE BUT DOES NOT REQUEST MEDICATION AT THIS TIME. PT HAS NO IV LINE AND REFUSED INSERTION. SKIN IS WARM, DRY AND NON DIAPHORETIC. CALL LIGHT WITHIN REACH. ALL SAFETY MEASURES IN PLACE. WILL CONTINUE TO MONITOR.
[2021-07-20 20:00] VITALS: BP 115/64
--- NOTE | 2021-07-20 20:47 | NUR ---
BLOOD GLUCOSE CHECKED 227, INSULIN COVERAGE ADMINISTERED ORDERED. PT TOLERATED IT WELL. ALL SAFETY MEASURES IN PLACE. WILL CONTINUE TO MONITOR.
--- NOTE | 2021-07-20 23:15 | NUR ---
CHECKED ON PT WATCHING TV. NO S/S OF DISTRESS. BREATHING IS EVEN AND UNLABORED. NO COMPLAINTS MADE. WILL CONTINUE TO MONITOR.
--- NOTE | 2021-07-21 01:25 | NUR ---
MADE ROUNDS ON PT, NO S/S OF DISTRESS. RESPIRATIONS IS EVEN AN UNLABORED. NO COMPLAINTS MADE. CALL LIGHT WITHIN REACH. ALL SAFETY MEASURES IN PLACE.
--- NOTE | 2021-07-21 03:40 | NUR ---
PT IS SLEEPING, NO S/S OF DISTRESS. CHEST RISE AND FALL IS SYMMETRICAL. ALL SAFETY PRECAUTIONS IN PLACE. WILL CONTINUE TO MONITOR.
[2021-07-21 04:00] VITALS: BP 124/69
--- NOTE | 2021-07-21 05:46 | NUR ---
MADE ROUNDS ON PT, SLEEPING. NO S/S OF DISTRESS. BREATHING IS EVEN AND UNLABORED. CALL LIGHT WITHIN REACH. ALL SAFETY MEASURES IN PLACE. WILL CONTINUE TO MONITOR.
[2021-07-21] MEDS: BLOOD GLUCOSE MONITORING 1 DEV DEV FS SCH ×4 (06:42→20:11)
--- NOTE | 2021-07-21 06:42 | NUR ---
BLOOD GLUCOSE CHECKED 192, PT REFUSED INSULIN COVERAGE. EXPLAINED IMPORTANCE OF MEDICATION AND PT VERBALIZED UNDERSTANDING. ALL SAFETY MEASURES IN PLACE. WILL CONTINUE TO MONITOR.
[2021-07-21] MEDS: INSULIN LISPRO SLIDING SCALE 100 UNITS/ML VIAL SUBQ PRN ×4 (06:43→20:11)
--- NOTE | 2021-07-21 07:15 | NUR ---
ENDORSED TO AM SHIFT NURSE FOR CONTINUITY OF CARE. PT IS STABLE.
--- NOTE | 2021-07-21 07:16 | NUR ---
RECEIVED REPORT FROM EQUIPMENT MECHANIC SPECIALIST NURSE FOR CONTINUITY OF CARE. PATIENT IS IN BED RESTING AT THIS TIME. PATIENT IS ALERT AND ORIENTED X4. PATIENT IS ON RROM AIR, WITH 02 SAT AT 96%. NO SIGHS OF DISTRESS NOTED. PATIENT IS ON CCHO DIET. PATIENT ABD IS SOFT, NON-TENDER, NON-DISTENDED WITH BOWEL SOUNDS PRESENT. LAST BM WAS 07/21/21. PATIENT IS CONTINENT OF BOWEL AND BLADDER. PATIENT HAS NO IV ACCESS AT THIS TIME, PER EQUIPMENT MECHANIC SPECIALIST, PATIENT REFUSED. WILL ATTEMPT TO PLACE IV LATER TODAY. SKIN IS WARM, DRY, AND INTACT. WILL CONTINUE TO MONITOR. ALL SAFETY MEASURES IN PLACE. CALL LIGHT WITHIN REACH.
--- NOTE | 2021-07-21 07:30 | NUR ---
RECEIVED REPORT FROM SUE HUTCHISON. PLAN OF CARE DISCUSSED.
[2021-07-21] MEDS: ARIPiprazole 10 MG TAB PO SCH (09:00)
[2021-07-21] MEDS: ESCITALOPRAM 20 MG TAB PO SCH (09:00)
[2021-07-21] MEDS: FLUCONAZOLE 100 MG TAB PO SCH (09:39)
[2021-07-21] MEDS: FERROUS SULFATE 325 MG TABEC PO SCH (09:39)
--- NOTE | 2021-07-21 09:39 | NUR ---
ADMINISTERED SOME SCHEDULED MEDICATIONS, PATIENT REFUSED MEDICATIONS HEPARIN, ABILIFY, AND ESCITALOPRAM. STATED SHE DIDN'T WANT THEM. EDUCATED PATIENT ON MEDICATIONS AND BENEFIT OF TAKING MEDICATIONS, PATIENT STATED SHE JUST DIDN'T WANT THEM. WILL CONTINUE TO MONITOR.
[2021-07-21] MEDS: INSULIN LANTUS 100 UNITS/ML 10 ML VIAL SUBQ SCH (09:45)
--- NOTE | 2021-07-21 11:47 | NUR ---
PATIENT BLOOD GLUCOSE 321. COVERED WITH 8 UNITS INSULIN. EDUCATED PATIENT ON BLOOD GLUCOSE READING AND INSULIN ADMINISTRATION. PATIENT STATED AN UNDERSTANDING. WILL CONTINUE TO MONITOR.
--- NOTE | 2021-07-21 13:46 | NUR ---
DID ROUNDS ON PATIENT. PATIENT IN BED SLEEPING AT THIS TIME. NO SIGNS OF DISTRESS NOTED. NO COMPLAINTS OF PAIN OR DISCOMFORT. WILL CONTINUE TO MONITOR.
--- NOTE | 2021-07-21 14:10 | NUR ---
DC PLANNING LATE ENTRY DARRIN CONTACTED JAVIER FROM [facility] IN [facility] AT TO DISCUSS THEIR FACILITY AND CLARIFY IF THAT WILL BE APPROPRIATE SETTING FOR PATIENT PLACEMENT. PER JAVIER THEIR FACILITY IS PRIMARILY WITH PSYCH PATIENT'S THAT ARE NEEDING STABILIZATION FROM A CRISIS. JAVIER STATED THAT THEIR FACILITY IS NOT TAKING ME-DICAL AT THIS TIME AND THAT PATIENT DO NOT SEEM TO MEET CRITERIA FOR THEIR LEVEL OF CARE. DARRIN THANK HIM FOR HIS INFORMATION AND ENDED THE CALL. Addendum: 07/21/21 at 1746 by Ana Morrow CM DC PLANNING LATE ENTRY DARRIN CONTACTED EHSAN FROM [facility] AT TO DISCUSS THEIR FACILITY LEVEL OF CARE AND SERVICES PROVIDED TO THEIR RESIDENTS. PER EHSAN THEIR FACILITY IS PRIMARILY A VOLUNTARY RESIDENTIAL FOR PSYCH PATIENT'S THAT ARE IN NEED OF STABILIZATION. SHE ALSO STATED THAT THEIR FACILITY IS NOT TAKING ME-DICAL AT THIS TIME AND THAT PATIENT DO NOT SEEM TO MEET CRITERIA FOR THEIR LEVEL OF CARE. DARRIN THANK HER FOR THE INFORMATION AND ENDED THE CALL. Addendum: 07/21/21 at 1803 by Ana Morrow CM SW MEET WITH PATIENT AT BEDSIDE TO DISCUSS ALL EFFORTS BEEN MADE TO FIND HER APPROPRIATE PLACEMENT AND DISCUSS CONCERNS FOR PATIENT TO NOT BEEN COOPERATIVE AND IN COMPLIANT WITH STAFF AND ON TAKING HER MEDICATIONS. SW EXPLAINED TO PATIENT THAT DUE TO HER LIMITATIONS AND CONCERNS SNF PLACEMENT HAS NOT BEEN SUCCESSFUL DUE TO NOT MEETING CRITERIA FOR LEVEL OF CARE. DISCUSS WITH PATIENT HER 5150 CLEARANCE AND PATIENT STATED " I DO NOT WANT TO GO TO A PSYCH FACILITY I AM NOT MENTALLY ILL" SW REPORTED TO PATIENT THAT HAS BEEN DOING SOME SEARCH FOR HER IN TO A ROOM AND BOARD AND DISCUSS HER INCOME AND ABILITY TO PAY FOR PLACE AND INDEPENDENT LIVING SITUATION INSTEAD OF BEEN IN THE STREETS. PATIENT STATED " YES I WILL BE WILLING TO GIVE IT A TRY AND HAVE A PLACE TO INSTEAD OF THE STREETS. PATIENT REPORTED THAT SHE IS GETTING ABOUT $880.00 FROM HER DISABILITY AND WAS INTERESTED ON INFORMATION. SW PROVIDED INFORMATION TO PATIENT TO ROOM AND BOARD CONTACT ISABELLE MCCARTY. PATIENT AGREED TO CONTACT HIM AND COMMUNICATE WITH ISABELLE. DARRIN AND CM CALL HIM WITH CLIENT TO DISCUSS SERVICES AND PATIENT AGREED TO GO TO ROOM AND BOARD TOMORROW. SHE DID NOT LIKE TO GO TO THE [facility] BUT AGREED TO GO TO ANOTHER ROOM AND BOARD CLOSER TO [facility]. PATIENT GIVE ISABELLE HER INFORMATION AN HE AGREED TO SET UP HER TRANSPORT AT DISCHARGE TO ROOM AND BOARD TOMORROW 07/22/2021. DARRIN AND CM ENDED MEETING WITH PATIENT. DARRIN AND CM WILL FOLLOW UP NEEDED.
[2021-07-21 16:00] VITALS: BP 113/64
--- NOTE | 2021-07-21 16:50 | NUR ---
ASSISTED PATIENT TO AMBULATE TO REST ROOM. PATIENT COMPLAIN OF FEELING TIRED. HOWEVER, DID TOLERATE WELL. NO COMPLAINTS OF SOB OR PAIN. WILL CONTINUE TO MONITOR.
--- NOTE | 2021-07-21 19:20 | NUR ---
ENDORSED PATIENT TO FINANCE PROFESSOR NURSE FOR CONTINUITY OF CARE. PATIENT STABLE.
--- NOTE | 2021-07-21 19:21 | NUR ---
RECEIVED REPORT FROM DAY NURSE FOR CONTINUITY OF CARE. PATIENT OBSERVED LAYING IN BED WATCHING TV. PATIENT IS ALERT AND ORIENTED X3. RESPIRATIONS ARE EQUAL AND UNLABORED ON ROOM AIR. PATIENT IS CONTINENT OF BOWEL AND BLADDER. PT AMBULATORY ABLE TO MAKE NEEDS KNOWN. PATIENT HAS NO IV ACCESS AT THIS TIME PT REFUSING MD AWARE. SKIN IS WARM, DRY, AND INTACT. WILL CONTINUE TO MONITOR. ALL SAFETY MEASURES IN PLACE. CALL LIGHT WITHIN REACH.
--- NOTE | 2021-07-21 20:11 | NUR ---
PT OBSERVED IN BED WITH FLAT AFFECT. PT IS CALM BUT EASILY IRRITABLE. PATIENT REFUSING VS. PT WITH NON COMPLIANCE TO TREATMENT AND MEDICATIONS. ALLOWED ACCU CHECK BS 233 COVERAGE GIVEN. MED EDUCATION GIVEN. PT REFUSING HEPARIN DESPITE RATIONALE AND EDUCATION. PT STATES, "I DONT NEED THAT." ALL NEEDS MET. WILL CONTINUE TO MONITOR.
--- NOTE | 2021-07-21 22:00 | NUR ---
ROUNDS MADE. PT RESTING IN BED WITH EYES CLOSED APPEARS TO BE ASLEEP. CHEST RISE AND FALL NOTED. WILL CONTINUE TO MONITOR.
--- NOTE | 2021-07-22 00:09 | NUR ---
ROUNDS MADE. PT OBSERVED IN BED APPEARS TO BE ASLEEP. CHEST RISE AND FALL NOTED. WILL CONTINUE TO MONITOR.
--- NOTE | 2021-07-22 02:06 | NUR ---
MADE ROUNDS. PT OBSERVED IN BED APPEARS TO BE ASLEEP. CHEST RISE AND FALL NOTED.
[2021-07-22] MEDS: BLOOD GLUCOSE MONITORING 1 DEV DEV FS SCH ×2 (06:33→11:31)
--- NOTE | 2021-07-22 06:34 | NUR ---
PATIENT REFUSING ACCU CHECK DESPITE EDUCATION. PT STATES, "NO, NOT RIGHT NOW." WILL TRY AGAIN LATER.
--- NOTE | 2021-07-22 07:18 | NUR ---
GAVE BEDSIDE REPORT TO DAY RN. PT ENDORSED IN STABLE CONDITION.
--- NOTE | 2021-07-22 07:19 | NUR ---
RECEIVED REPORT FROM COMPUTING SERVICES DIRECTOR NURSE FOR CONTINUITY OF CARE. PATIENT IS IN BED SLEEPING AT THIS TIME. RESPIRATIONS ARE EVEN AND UNLABORED. NO SIGHS OF DISTRESS NOTED. PATIENT IS ON ROOM AIR. PATIENT IS ALERT AND ORIENTED X4. ABLE TO VERBALIZE NEEDS TO STAFF. PATIENT IS ON CCHO DIET. PATIENT ABD IS SOFT, NON-TENDER, AND NON-DISTENDED WITH BOWEL SOUNDS PRESENT. PATIENT LAST BOWEL MOVEMENT 07/21/21. PATIENT IS CONTINENT OF BOWEL AND BLADDER. PATIENT SKIN IS WARM, DRY, AND INTACT. PATIENT HAS NO IV ACCESS AT THIS TIME, IV REFUSED MULTIPLE TIMES. WILL CONTINUE TO MONITOR. CALL LIGHT WITHIN REACH. ALL SAFETY MEASURES IN PLACE.
[2021-07-22] MEDS: FERROUS SULFATE 325 MG TABEC PO SCH (08:30)
[2021-07-22] MEDS: FLUCONAZOLE 100 MG TAB PO SCH (08:32)
[2021-07-22] MEDS: ARIPiprazole 10 MG TAB PO SCH (08:42)
[2021-07-22] MEDS: ESCITALOPRAM 20 MG TAB PO SCH (08:43)
[2021-07-22] MEDS ORDERED: INSULIN LANTUS 100 UNITS/ML 10 ML VIAL SUBQ SCH (09:00)
--- NOTE | 2021-07-22 11:00 | NUR ---
PER ISABELLE, THE TEARER (NABIL) OF ROOM AND BOARD THAT IS LOCATED IN [facility] WILL COME TO SEE PT AFTER LUNCH. KIANNA NURSE ASSIGNED MADE AWARE.
--- NOTE | 2021-07-22 11:29 | NUR ---
PER IRON WALTON, NOT NABIL, WILL COME AND SEE PATIENT. PATIENT MADE AWARE.
[2021-07-22] MEDS: INSULIN LISPRO SLIDING SCALE 100 UNITS/ML VIAL SUBQ PRN (11:32)
--- NOTE | 2021-07-22 12:00 | NUR ---
ZAKI FROM [facility] ROOM AND BOARD CALLED, STATED THAT SHE WILL CREDIT RISK REVIEW OFFICER THE PT INSTEAD OF NABIL BEFORE 3PM TODAY. KIANNA-NURSE ASSIGNED MADE AWARE.
--- NOTE | 2021-07-22 15:35 | NUR ---
PATIENT DISCHARGED TO [facility] ROOM AND BOARD. WENT OVER DISCHARGE PAPERWORK. EDUCATED PATIENT ON MEDICATIONS SHE WILL BE DISCHARGED WITH. PATIENT SIGNED ALL PAPERWORK. ANSWERED ALL QUESTIONS. ALL BELONGINGS TAKEN UPON DISCHARGE. WRIST BAND REMOVED.
== END 2021-07-22 15:38 | disposition home or self-care (01) | DRG 420 ==
LOC: MED 00:11 → MMU 04:57 → MTU 05:30 → MIC 18:45 → MTU 07-17 11:20
DX: E11.10 Type 2 diabetes mellitus with ketoacidosis without coma (principal); E44.1 Mild protein-calorie malnutrition; E87.6 Hypokalemia; Z20.822 Contact with and (suspected) exposure to COVID-19; F32.9 Major depressive disorder, single episode, unspecified; Z60.2 Problems related to living alone; D50.9 Iron deficiency anemia, unspecified; E66.01 Morbid (severe) obesity due to excess calories; E83.39 Other disorders of phosphorus metabolism; R06.03 Acute respiratory distress; Z91.14 Patient's other noncompliance with medication regimen; Z91.011 Allergy to milk products; Z79.2 Long term (current) use of antibiotics; Z79.84 Long term (current) use of oral hypoglycemic drugs; Z79.4 Long term (current) use of insulin; Z79.899 Other long term (current) drug therapy; Z68.29 Body mass index [BMI] 29.0-29.9, adult
CPT/HCPCS: 36415; 36600; 70450; 80048; 80053; 80305; 81001; 82009; 82150; 82607; 82728; 82746; 82803; 82948; 83036; 83540; 83605; 83690; 83735; 83880; 84100; 84134; 84436; 84443; 85025; 85045; 85610; 85730; 87081; 87086; 96372; 97110; 97116; 97163-GP; 97530; 99285; J1450; J1644; J1815